=== PATIENT | female | born 1990 | race Caucasian/White ===

== ENCOUNTER 2017-07-07 16:31 | Emergency (ER) | payer SELFPAY ==
[2017-07-07 17:24] VITALS: BP 114/62
--- NOTE | 2017-07-07 17:50 | UC ---
Hand/Wrist HPI - HPI Summary HPI Summary: 26 YO FEMALE INJURED RIGHT HAND AT WORK 3 DAYS AGO SEEN AT [facility] XRAY RESULTS ALL NEGATIVE WAS REFERRED TO ORTHOPEDIST BUT CAME HERE FOR F/U - History Of Current Complaint Chief Complaint: UCUpperExtremity Stated Complaint: RT WRIST INJ - W/C Time Seen by Provider: 07/07/17 17:25 Hx Obtained From: Patient Hx Last Menstrual Period: has nexplanon Onset/Duration: Sudden Onset Severity Initially: Severe Severity Currently: Moderate Pain Intensity: 5 Pain Scale Used: 0-10 Numeric Character Of Pain: Throbbing, Spasmodic Aggravating Factor(s): Movement Alleviating Factor(s): Rest Related History: Occupational Injury, Dominant Hand Right - Allergies/Home Medications Allergies/Adverse Reactions: Allergies Allergy/AdvReac Type Severity Reaction Status Date / Time No Known Allergies Allergy Verified 07/07/17 17:24 Home Medications: Home Medications Etonogestrel [Nexplanon] 68 mg IMPLANT DAILY 07/07/17 [History Confirmed ] PMH/Surg Hx/FS Hx/Imm Hx Previously Healthy: Yes - Surgical History Surgical History: None - Family History Known Family History: Positive: Hypertension - Social History Alcohol Use: Rare Substance Use Type: None Smoking Status (MU): Never Smoked Tobacco Review of Systems Constitutional: Negative Skin: Negative Eyes: Negative ENT: Negative Respiratory: Negative Cardiovascular: Negative Gastrointestinal: Negative Genitourinary: Negative Motor: Negative Neurovascular: Negative Musculoskeletal: Arthralgia Neurological: Negative Psychological: Negative Is Patient Immunocompromised?: No All Other Systems Reviewed And Are Negative: Yes Physical Exam Triage Information Reviewed: Yes Appearance: Well-Appearing, No Pain Distress, Well-Nourished Vital Signs: Initial Vital Signs Temp 99.2 F 07/07/17 17:17 Pulse 69 07/07/17 17:17 Resp 16 07/07/17 17:17 BP 114/62 07/07/17 17:17 Pulse Ox 100 07/07/17 17:17 Vital Signs Reviewed: Yes Eyes: Positive: Conjunctiva Clear ENT: Negative: Nasal congestion, Nasal drainage, Muffled voice, Hoarse voice Neck: Positive: Supple, Nontender, No Lymphadenopathy Respiratory: Positive: Lungs clear, Normal breath sounds, No respiratory distress, No accessory muscle use Cardiovascular: Positive: RRR, No Murmur Musculoskeletal: Positive: Edema @ - MILD RIGHT DORSAL HAND EDEMA, N/V INTACT, PAINFUL ROM OF ALL DIGITS, Other: - GOOD CAP REFILL Neurological: Positive: Alert Psychological Exam: Normal Skin Exam: Normal Hand/Wrist Course/Dx - Differential Dx/Diagnosis Provider Diagnoses: RIGHT HAND CONTUSION Discharge - Discharge Plan Condition: Stable Disposition: HOME Patient Education Materials: Contusion in Adults (ED) Referrals: BREANNE Owusu [Primary Care Provider] - Additional Instructions: splint elevate remove hand from splint periodically to ice YOU WERE REFERRED TO AN ORTHOPEDIC GROUP AT YOUR ER VISIT CALL THAT OFFICE IN AM FOR APPT YOU MAY NEED PT OR OT REFERRAL YOU MAY NEED OTHER IMAGING Images Hands: 1 - TENDER/MINIMAL EDEMA
== END 2017-07-07 17:57 | disposition home or self-care (01) ==
LOC: UCCORT 16:31
DX: S60.221A Contusion of right hand, initial encounter (principal); X58.XXXA Exposure to other specified factors, initial encounter; Y93.9 Activity, unspecified; Y92.9 Unspecified place or not applicable; Y99.0 Civilian activity done for income or pay
CPT/HCPCS: 99212; G0463

== ENCOUNTER 2018-02-19 11:23 | Day surgery (SDC) | payer OTHER ==
[~2018-02-19 11:23] MED LIST: Buffered Lidocaine 0.9% SYRIN* 5 ML/SYR SYRINGE INTRADERM ONE; Sodium Citrate/Citric Acid* 15 ML UDC ONE; Sodium Citrate/Citric Acid* 15 ML UDC PO ONE
[2018-02-19] MEDS ORDERED: ceFAZolin 2 GM PREMIX in ORs 2 GM/50 ML BAG IVPB ONE (11:32)
[2018-02-19] MEDS ORDERED: ROPIVACAINE 5 MG/ML 30 ML BTL (0.5%) ONE (12:39)
[2018-02-19] MEDS ORDERED: Ketorolac INJ* 30 MG/ML 1 ML VIAL IV PRN (13:06)
[2018-02-19] MEDS ORDERED: Ondansetron INJ* 2 MG/ML VIAL IV PRN (13:06)
[2018-02-19] MEDS ORDERED: Naloxone* 0.4 MG/ML 1 ML VIAL IV PRN (13:06)
[2018-02-19] MEDS ORDERED: fentaNYL* 50 MCG/ML 2 ML VIAL (100 MCG VIAL) IV PRN (13:06)
[2018-02-19] MEDS ORDERED: fentaNYL* 50 MCG/ML 2 ML VIAL (100 MCG VIAL) ONE ×2 (13:27→15:57)
[2018-02-19] MEDS ORDERED: Propofol* 10 MG/ML 20 ML BTL IV PUSH ONE (13:28)
[2018-02-19] MEDS ORDERED: Lidocaine 2% PF * 5 ML VIAL ONE (13:28)
[2018-02-19] MEDS ORDERED: Dexamethasone IV* 4 MG/ML 1 ML (4 MG) ONE (13:48)
[2018-02-19] MEDS ORDERED: Ondansetron INJ* 2 MG/ML VIAL ONE (17:01)
[2018-02-19] MEDS ORDERED: Ketorolac INJ* 30 MG/ML 1 ML VIAL ONE (17:07)
[2018-02-19 18:18] VITALS: BP 122/57
--- NOTE | 2018-02-20 09:09 | OP ---
DATE OF OPERATION: 02/19/18 [facility] DATE OF : [birth year] SURGEON: Neftali Garzon MD PERINATOLOGY PHYSICIAN: KATHY Licea. An hair assistant was needed for the procedure to aid in positioning of the arm and retraction. ANESTHESIOLOGIST: Dr. Rodriguez. ANESTHESIA: General. PRE-OP DIAGNOSES: 1. Right peripheral TFCC tear. 2. Right distal radioulnar joint instability. POST-OP DIAGNOSES: 1. Right wrist TFCC peripheral tear. 2. 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 OPERATIVE PROCEDURE: 1. Right wrist arthroscopic TFCC debridement with partial dorsal synovectomy. 2. Right wrist triangular fibrocartilage complex reconstruction with palmaris longus tendon graft. INDICATIONS: Ford is 27 years old. She has had progressive right ulnar-sided wrist pain. The DRUJ is very tender. I thought in the office, she had instability. I told her that I would check the wrist when she was under anesthesia and I could get an excellent exam and if the things looked repairable, I would repair the TFCC; if not, we would reconstruct the TFCC. She understood the risks and benefits. She wanted to proceed. ESTIMATED BLOOD LOSS: 2 mL. COMPLICATIONS: None. FINDINGS: See above and below. DESCRIPTION OF PROCEDURE: Ford was seen in the preoperative holding area. The correct side, site, and procedure were identified. We came back to the operating room where the arm was prepped and draped in the usual fashion. A time-out was performed. I began by exsanguinating the arm with the Esmarch and the tourniquet was inflated to 250 mmHg. The arm had been placed in the Acumed traction tower. I developed a 3/4 portal in a standard fashion with an 11 blade followed by a Mosquito, followed by the trocar. The camera was introduced into the 3/4 portal of the radial-sided structures, all looked excellent. There was somewhat of a small step-off between the scaphoid and the lunate with the lunate sagging a little bit more proximal than the scaphoid. I went ahead and came ulnar, I created a 6R portal in a standard fashion. I brought in the shaver through the 6R portal. I then performed a dorsal synovectomy. I examined the TFCC arthroscopically. There was no central perforation. There was some delamination of the radial attachment of the palmar radioulnar ligament. It was difficult to visualize the dorsal radioulnar ligament attachment. There was definitely some dorsal peripheral tearing of the TFCC off of the capsule. There was a little bit of delamination of the ulnar carpal ligament. These were debrided back with the shaver, and then the radiofrequency ablator until everything was nice and stable. I then came to the mid carpal row and I created radioulnar mid carpal portals. The camera was introduced through the radial portal. The probe was introduced through the ulnar portal. There was a type 2 lunate. There was good lunotriquetral stability. There was stage 2 to stage 3 scapholunate instability. At this point, nothing further could be done arthroscopically. I went ahead and took the arm out of the traction tower, let the arm down and I made a dorsal incision over the fifth dorsal compartment. Dissection was carried down. The extensor retinaculum was opened over the fifth dorsal compartment. The EDM tendon was transposed. The DRUJ arthrotomy was performed and teed back distally just distal to the ulnar head and proximal to the TFCC. The dorsal radial ulnar ligament attachment origin was preserved. There was degeneration and tearing off of the foveal fibers noted. These were debrided back with the rongeur and the [place] blade and the curette. The tear between the capsule and the dorsal TFCC was noted. I went ahead to main arthrotomy distal to the TFCC as well. At this point, I had examined the distal radial ulnar joint. There was blank instability. I could dislocate the joint palmary. Dorsally, there was actually pretty good stability. I do not think that simply repairing the TFCC peripherally would provide adequate stability and I thought it was almost certainly going to fail if I did that; therefore, I decided to perform a reconstruction. I went ahead and made a 1-cm transverse incision in the proximal wrist. The palmaris longus tendon was brought out at the end of the wound and released distally. I then used the tendon stripper to harvest the full length of the palmaris longus tendon, the muscular remnants proximally were removed. I tied it with 2-0 FiberWire whipstitch to both ends of the tendon graft. I then placed the guidewire for a Synthes 3-0 cannulated screw just proximal to the subchondral bone and parallel to the articular surface of the distal radius and just a few millimeters radial to the DRUJ. The guidewire was overdrilled. Then, I upsized the drill hole with a 3.2 drill bit. I then created a similar drill tunnel starting in the fovea of the ulna and exiting out the ulnar cortex. I made a 2-cm incision over the ulnar aspect of the ulna and could visualize first the guidewire and then the drill bit coming out directly out of the medial ulnar shaft. I then made a palmar incision just long enough so that I could gain access going down between the flexor tendons and the ulnar neurovascular bundle and I could visualize my bone tunnel coming out the palmar aspect of the distal radius. I then passed my tendon graft from palmar to dorsal through my radius bone tunnel. I then used a Mosquito to penetrate the ulnar carpal ligaments and passed my tendon graft from palmar to dorsal deep to TFCC that remained. I then brought both ends of my tendon graft through my bone tunnel in the ulna. The one tendon tail was then looped back around the palmar aspect of the distal ulna through the interosseous membrane and then a tendinous V was created over the dorsum of the distal ulna. Maximum tension was set and the tendon transfer was secured with multiple 2-0 FiberWire sutures. This provided excellent stability to the DRUJ both dorsally and palmarly. I was very pleased. I went ahead and irrigated out the wound. The capsule dorsally was closed with 0 Ethibond suture leaving the EDM tendon transposed. The peripheral tear was sewed closed with 3-0 Ethibond suture. All the wounds were closed with 4- 0 Monocryl suture and Steri-Strips. 0.25% Marcaine was infiltrated all around the operative area. The wounds were then dressed and a sugar-tong splint was applied with the forearm in neutral rotation. Tourniquet was deflated. The hand pinked up immediately. She was then taken to the recovery room in stable condition. [id number]/[facility] #: [id number] [facility]OSPITALSNichol
--- NOTE | 2018-02-24 16:45 | RAD ---
CPT II Codes: G9500 . INDICATION: Right wrist arthroscopy and open triangular fibrocartilage complex repair Fluoroscopic services provided for referring physician. 14 seconds of fluoroscopy time was used. 4 spot images demonstrates placement of 4 pins for trying to fibrocartilage repair. IMPRESSION: Fluoroscopic services provided for referring physician for triangular fibro-cartilage complex repair.
== END 2018-02-19 18:19 | disposition home or self-care (01) ==
LOC: OREAST 11:23
PROVIDERS: ATTEND Orthopaedic Surgery Hand Surgery
DX: S63.591A Other specified sprain of right wrist, initial encounter (principal); W24.0XXA Contact with lifting devices, not elsewhere classified, initial encounter; Y93.89 Activity, other specified; Y92.512 Supermarket, store or market as the place of occurrence of the external cause; Y99.0 Civilian activity done for income or pay; F41.8 Other specified anxiety disorders; J45.909 Unspecified asthma, uncomplicated
CPT/HCPCS: 76000; 81025; A9270-GY; C1769; J0690; J1100; J1885; J2405; J2704; J2795; J3010